=== PATIENT | male | born 1960 | race African-American/Black ===

== ENCOUNTER 2022-05-29 15:43 | Inpatient (IN) | payer OTHER ==
[2022-05-29 16:31] LABS: Absolute Lymphocytes (CBC) 1.2 K/uL (0.7-4.9); Hematocrit 35.8 % (39.6-49.0); Lymphocytes % 19.4 % (15.3-44.8); MCV 90.7 fL (80-100); MPV 8.5 fL (7.6-11.3); RBC Red Blood Cell Count 3.94 M/uL (4.33-5.43)
[2022-05-29] MEDS ORDERED: ASPIRIN 81 MG CHEWABLE TABLET ONE (16:31)
[2022-05-29 16:44] LABS: Potassium 5.4 mmol/L (3.5-5.1); Troponin High Sensitivity 25.6 pg/mL (<58.9)
--- NOTE | 2022-05-29 16:52 | RAD REPORT ---
EXAM DESCRIPTION: Rickey Single View05/29/2022 4:28 pm CLINICAL HISTORY: Chest pain COMPARISON: 2011 FINDINGS: The lungs appear clear of acute infiltrate. The heart is normal size IMPRESSION: No acute abnormalities displayed
--- NOTE | 2022-05-29 17:12 | EDPHYS ---
Physician Documentation [facility] Name: Zeferino Spain Age: 61 yrs Sex: Male : 1960 Arrival Date: 05/29/2022 Time: 15:45 Bed 24 Private MD: ED Physician Hola Lui HPI: 05/29 16:33 This 61 yrs old Black Male presents to ER via Ambulatory with complaints of Shortness ms3 Of Breath - on exertion. 16:34 The patient or guardian reports chest pain that is located primarily in the substernal ms3 area. Onset: 1 week(s) ago. The pain does not radiate. Associated signs and symptoms: Pertinent positives: Pertinent negatives: abdominal pain, diaphoresis, headache, vomiting. The chest pain is described as "discomfort". Duration: The patient or guardian reports a single episode. Modifying factors: The symptoms are alleviated by rest, the symptoms are aggravated by exertion. Severity of pain: At its worst the pain was incapacitating in the emergency department the pain has resolved. Historical: - Allergies: 16:06 unknow med; jl7 - PMHx: 16:06 Diabetes mellitus; Hypertensive disorder; Hypercholesterolemia; Congestive heart jl7 failure; - Immunization history:: Client reports receiving the 2nd dose of the Covid vaccine. - Social history:: Smoking status: Patient denies any tobacco usage or history of. ROS: 16:34 Constitutional: Negative for fever, and chills. Neck: Negative for injury, pain, and ms3 swelling. 16:34 Respiratory: Negative for shortness of breath, cough, wheezing, and pleuritic chest pain, Abdomen/GI: Negative for abdominal pain, nausea, vomiting, diarrhea, and constipation, MS/Extremity: Negative for injury and deformity, Skin: Negative for injury, rash, and discoloration, Neuro: Negative for headache, weakness, numbness, tingling. 16:34 Cardiovascular: Positive for chest pain. 16:34 All other systems are negative. Exam: 16:09 ECG was reviewed by the Attending Physician. ms3 16:34 Constitutional: This is a well developed, well nourished patient who is awake, alert, ms3 and in no acute distress. Head/Face: Normocephalic, atraumatic. Neck: Trachea midline, no cervical lymphadenopathy. Supple, full range of motion without nuchal rigidity, or vertebral point tenderness. No Meningismus. Chest/axilla: Normal chest wall appearance and motion. Nontender with no deformity. Cardiovascular: Regular rate and rhythm with a normal S1 and S2. No gallops, murmurs, or rubs. Normal PMI, no JVD. No pulse deficits. Respiratory: Lungs have equal breath sounds bilaterally, clear to auscultation and percussion. No rales, rhonchi or wheezes noted. No increased work of breathing, no retractions or nasal flaring. Abdomen/GI: Soft, non-tender, with normal bowel sounds. No distension or tympany. No guarding or rebound. No evidence of tenderness throughout. Skin: Warm, dry with normal turgor. Normal color with no rashes, no lesions, and no evidence of cellulitis. MS/ Extremity: Pulses equal, no cyanosis. Neurovascular intact. Full, normal range of motion. Neuro: Awake and alert, GCS 15, oriented to person, place, time, and situation. Cranial nerves II-XII grossly intact. Motor strength 5/5 in all extremities. Sensory grossly intact. Cerebellar exam normal. Normal gait. Psych: Awake, alert, with orientation to person, place and time. Behavior, mood, and affect are within normal limits. Vital Signs: 16:05 BP 152 / 74; Pulse 73; Resp 20; Temp 97.7; Pulse Ox 98% ; Weight 111.13 kg; Height 5 7 ft. 10 in. (177.80 cm); Pain 0/10; 16:21 BP 126 / 89; Pulse 73; Resp 18; Pulse Ox 98% on R/A; bh1 17:46 BP 133 / 78; Pulse 75; Resp 18; Pulse Ox 97% on R/A; bh1 20:02 BP 113 / 61; Pulse 69; Resp 18; Pulse Ox 99% on R/A; bh1 16:05 Body Mass Index 35.15 (111.13 kg, 177.80 cm) [facility] MDM: 16:03 Patient medically screened. ms3 16:35 Differential diagnosis: abnormal EKG, acute myocardial infarction, stable angina, ms3 unstable angina. 17:13 HEART Score: History: Moderately Suspicious (1), ECG: Normal (0), Age: > 45 and < 65 ms3 years (1), Risk Factors: > or = 3 Risk factors for atherosclerotic disease (2), [Hypercholesterolemia] [Hypertension] [DM] Troponin: < or = 1 x Normal Limit (0), Total Score = 4. Data reviewed: vital signs, nurses notes, lab test result(s), EKG, radiologic studies, and as a result, I will admit patient. Counseling: I had a detailed discussion with the patient and/or guardian regarding: the historical points, exam findings, and any diagnostic results supporting the discharge/admit diagnosis, lab results, radiology results, the need for further work-up and treatment in the hospital. ED course: Discussed plan for observation with patient and he agrees with plan. patient remained in stable condition in the ED.. 05/29 16:04 Order name: Basic Metabolic Panel; Complete Time: 17:05 ms3 05/29 16:04 Order name: CBC with Diff; Complete Time: 17:05 ms3 05/29 16:04 Order name: NT PRO-BNP; Complete Time: 17:05 ms3 05/29 16:04 Order name: Troponin HS; Complete Time: 17:05 ms3 05/29 16:04 Order name: XRAY Chest (1 view); Complete Time: 17:05 ms3 05/29 16:33 Order name: COVID-19 SARS RT PCR (Document "Date of Onset" if Symptomatic) jl7 05/29 16:04 Order name: EKG; Complete Time: 16:04 ms3 05/29 16:04 Order name: Cardiac monitoring; Complete Time: 16:21 ms3 05/29 16:04 Order name: EKG - Nurse/Tech; Complete Time: 16:21 ms3 05/29 16:04 Order name: IV Saline Lock; Complete Time: 16:21 ms3 05/29 16:04 Order name: Labs collected and sent; Complete Time: 16:21 ms3 05/29 16:04 Order name: O2 Per Protocol; Complete Time: 16:21 ms3 05/29 21:37 Order name: EDMT 05/29 16:04 Order name: O2 Sat Monitoring; Complete Time: 16:21 ms3 EC:09 Rate is 74 beats/min. Rhythm is regular. Left axis deviation noted. OK interval is ms3 normal. QRS interval is normal. Clinical impression: NSR w/ Non-specific ST/T Changes. Interpreted by me. Reviewed by me. Administered Medications: 16:25 Drug: Aspirin Chewable Tablet 324 mg Route: PO; [facility] 16:25 Follow up: Response: No adverse reaction [facility] Disposition Summary: 05/29/22 17:12 Hospitalization Ordered Location: Telemetry/MedSurg (observation) ms3 Condition: Stable ms3 Problem: new ms3 Symptoms: are unchanged ms3 Bed/Room Type: Standard ms3 Hospitalization Status: Inpatient Admission(05/29/22 17:51) [facility] Provider: David Lux(05/29/22 17:51) [facility] Room Assignment: [facility](05/29/22 21:02) Diagnosis - Chest pain, unspecified ms3 Forms: - Medication Reconciliation Form ms3 - SBAR form ms3 Signatures: Dispatcher [employer] EDMS Robert Stratton, FREDA-C PRESIDENT OF [employer] [place]-Cla1 Syl Sutherland RN RN Milton Albert RN RN jl7 Hola Lui DO DO ms3 Jade Osorio RN RN [facility] Corrections: (The following items were deleted from the chart) 16:07 16:06 PMHx: None; mathew carmona 17:51 17:12 Observation ms3 la1 17:51 17:12 Tomas Tejada ms3 wi1 21:02 17:12 ms3 cg
--- NOTE | 2022-05-29 17:12 | ER ---
Nurse's Notes [facility] Name: Zeferino Spain Age: 61 yrs Sex: Male : 1960 Arrival Date: 05/29/2022 Time: 15:45 Bed 24 Private MD: Diagnosis: Chest pain, unspecified Presentation: 05/29 16:05 Chief complaint: Patient states: Chest discomfort with exertion x 1 week. Coronavirus jl7 screen: At this time, the client does not indicate any symptoms associated with coronavirus-19. Ebola Screen: No symptoms or risks identified at this time. Initial Sepsis Screen: Does the patient meet any 2 criteria? No. Patient's initial sepsis screen is negative. Does the patient have a suspected source of infection? No. Patient's initial sepsis screen is negative. Risk Assessment: Do you want to hurt yourself or someone else? Patient reports no desire to harm self or others. Onset of symptoms was May 22, 2022. 16:05 Method Of Arrival: Ambulatory jl7 16:05 Acuity: ANISHA 2 jl7 Triage Assessment: 16:06 General: Appears in no apparent distress. uncomfortable, Behavior is calm, cooperative, jl7 appropriate for age. Pain: Complains of pain in chest Pain currently is 0 out of 10 on a pain scale. at worst was 10 out of 10 on a pain scale. Respiratory: Reports shortness of breath on exertion Onset: The symptoms/episode began/occurred gradually, the patient reports symptoms have resolved. Historical: - Allergies: 16:06 unknow med; jl7 - PMHx: 16:06 Diabetes mellitus; Hypertensive disorder; Hypercholesterolemia; Congestive heart jl7 failure; - Immunization history:: Client reports receiving the 2nd dose of the Covid vaccine. - Social history:: Smoking status: Patient denies any tobacco usage or history of. Screenin:21 Abuse screen: Denies threats or abuse. Nutritional screening: No deficits noted. bh1 Tuberculosis screening: No symptoms or risk factors identified. Fall Risk None identified. Assessment: 16:21 Reassessment: No changes from previously documented assessment. General: Appears in no bh1 apparent distress. Cardiovascular: No deficits noted. Rhythm is regular. Respiratory: Airway is patent Respiratory effort is even, unlabored, Breath sounds are clear bilaterally. Vital Signs: 16:05 BP 152 / 74; Pulse 73; Resp 20; Temp 97.7; Pulse Ox 98% ; Weight 111.13 kg; Height 5 7 ft. 10 in. (177.80 cm); Pain 0/10; 16:21 BP 126 / 89; Pulse 73; Resp 18; Pulse Ox 98% on R/A; bh1 17:46 BP 133 / 78; Pulse 75; Resp 18; Pulse Ox 97% on R/A; bh1 20:02 BP 113 / 61; Pulse 69; Resp 18; Pulse Ox 99% on R/A; bh1 16:05 Body Mass Index 35.15 (111.13 kg, 177.80 cm) 7 ED Course: 15:45 Patient arrived in ED. as 15:46 Hola Lui DO is Attending Physician. ms3 16:02 Jade Osorio, CASS is Primary Nurse. 1 16:06 Triage completed. 7 16:06 Arm band placed on right wrist. jl7 16:21 No apparent distress. Awaiting lab results, Awaiting radiology results. 1 16:21 Patient has correct armband on for positive identification. Bed in low position. Call [facility] light in reach. Side rails up X 1. phototypesetting equipment monitor on. Pulse ox on. NIBP on. 16:21 Basic Metabolic Panel Sent. [facility] 16:21 CBC with Diff Sent. 1 16:21 NT PRO-BNP Sent. 1 16:21 Troponin HS Sent. 1 16:21 No provider procedures requiring assistance completed. Inserted saline lock: 20 gauge bh1 in left forearm, using aseptic technique. Blood collected. 16:30 XRAY Chest (1 view) In Process Unspecified. EDMS 17:11 Tomas Tejada MD is Hospitalizing Provider. ms3 17:46 No apparent distress. Resting quietly. Awaiting bed assignment, Awaiting lab results, [facility] Awaiting radiology results. Patient requests food. 17:46 COVID-19 SARS RT PCR (Document "Date of Onset" if Symptomatic) Sent. [facility] 17:51 David Lux MD is Hospitalizing Provider. la1 20:04 No apparent distress. Resting quietly. Awaiting bed assignment. [facility] 21:16 Patient admitted, IV remains in place. 1 Administered Medications: 16:25 Drug: Aspirin Chewable Tablet 324 mg Route: PO; [facility] 16:25 Follow up: Response: No adverse reaction [facility] Medication: 16:21 VIS not applicable for this client. [facility] Outcome: 17:12 Decision to Hospitalize by Provider. ms3 21:15 Admitted to Tele accompanied by tech, room 427, Report called to MADELAINE ODELL [facility] 21:15 Condition: good 21:15 Discharge instructions given to millinery salesperson. 22:24 Patient left the ED. [facility] Signatures: Dispatcher [employer] EDCata Palmer Lee, SALES PROMOTION COORDINATOR-C SALES PROMOTION COORDINATOR-Cla1 Milton Albert RN RN jl7 Hola Lui DO DO ms3 Jade Osorio RN RN [facility] Corrections: (The following items were deleted from the chart) 16:07 16:06 PMHx: None; mathew carmona 21:41 21:15 Admitted to Tele accompanied by tech, room 427, [place] [id number]
--- NOTE | 2022-05-29 18:47 | P.HP ---
Certification for Inpatient Patient admitted to: Inpatient With expected LOS: >2 Midnights Patient will require the following post-hospital care: None Practitioner: I am a practitioner with admitting privileges, knowledge of patient current condition, hospital course, and medical plan of care. Services: Services provided to patient in accordance with Admission requirements found in Title 42 Section 412.3 of the Code of Federal Regulations <Robert Stratton - Last Filed: 05/29/22 18:41> Patient History Date of Service: 05/29/22 Reason for admission: Chest pain History of Present Illness: 61-year-old male with history of insulin-dependent diabetes, hypertension, hyperlipidemia, CHFunknown EF, CAD presents to the emergency department for chest pain. Patient reports that he was having to move and heavy object which is atypical for him in the process of moving heavy objects he developed an uncomfortable sensation in his chest with severe fatigue causing him to need to stop this activity, he rested and it was relieved, he attempted again to move a heavy object and once again experienced an abnormal sensation in his chest which she cannot further describe along with fatigue. He discontinued his efforts and presented to the emergency department for evaluation his labs were remarkable for creatinine of 4.03 GFR of 16 BUN of 46 and potassium of 5.4 his initial high-sensitivity troponin was within normal limits at 25.6, his BNP was 83 EKG was without STEMI criteria chest x-ray showed no acute abnormalities. His last creatinine here was from 2010 and was normal at 1.27 although patient reports he does follow with nephrology on outpatient basis and has been told he has chronic kidney disease, he cannot tell me what his baseline renal function is although he reports that in the past his director decision support has told him of his kidney function got much worse he could require dialysis. I called patient's nephrology group, they will consult. ED provider wishes to admit for ACS rule out. - Past Medical/Surgical History -: Diabetes metas type IIinsulin-dependent -: Hypertension -: BPH -: Hyperlipidemia -: CKD -: CHFunknown EF -: Right foot surgery -: Heart cath around 2016 no stentssome disease Psychosocial/ Personal History: Patient lives at home, is retired - Family History Mother -: Heart disease Notes: at 71 from [place] Brother -: Heart disease Notes: at 58 from [place] - Social History Smoking Status: Never smoker Alcohol use: No CD- Drugs: No Caffeine use: Yes Place of Residence: Home <Robert Stratton - Last Filed: 05/29/22 18:41> Date of Service: 05/30/22 <David Lux - Last Filed: 05/30/22 16:27> Review of Systems 10-point ROS is otherwise unremarkable Respiratory: SOB with Excertion Cardiovascular: Chest Pain <Robert Stratton - Last Filed: 05/29/22 18:41> Physical Examination - Physical Exam General: Alert, In no apparent distress, Oriented x3, Obese HEENT: Atraumatic, PERRLA, Mucous membr. moist/pink, EOMI, Sclerae nonicteric Neck: Supple, 2+ carotid pulse no bruit, No LAD, Without JVD or thyroid abnormality Respiratory: Clear to auscultation bilaterally, Normal air movement Cardiovascular: Regular rate/rhythm, Normal S1 S2 Gastrointestinal: Normal bowel sounds, No tenderness Musculoskeletal: No tenderness Integumentary: No rashes Neurological: Normal speech, Normal strength at 5/5 x4 extr, Normal tone, Normal affect - Studies Laboratory Data (last 24 hrs) 05/29/22 16:18: WBC 6.2, Hgb 12.0 L, Hct 35.8 L, Plt Count 236 05/29/22 16:18: Sodium 136, Potassium 5.4 H, BUN 46 H, Creatinine 4.03 H, Glucose 132 H <Robert Stratton - Last Filed: 05/29/22 18:41> - Studies Laboratory Data (last 24 hrs) 05/29/22 16:18: WBC 6.2, Hgb 12.0 L, Hct 35.8 L, Plt Count 236 05/29/22 16:18: Sodium 136, Potassium 5.4 H, BUN 46 H, Creatinine 4.03 H, Glucose 132 H <David Lux - Last Filed: 05/30/22 16:27> Assessment and Plan - Plan Assessment: Chest pain rule out ACS Acute renal failure versus CKD 4 Chronic CHFunknown EF Hypertension Hyperlipidemia BPH Plan: Chest pain rule out ACS: Patient reports last heart catheterization was around 5 years ago did not require any stenting but was told he did have some coronary artery disease, continue patient's aspirin, statin we will add low-dose beta- vonda. Story sounds like new onset angina, symptoms were quickly relieved after discontinuation of strenuous activity. Monitor on telemetry, trend troponins, cardiology consult in place. Continue other home medications. Acute renal failure versus CKD 4: Unknown baseline renal function, patient follows with Dr. Viera, has consulted nephrology for additional input, patient may be in acute renal failure renal ultrasound has been ordered and nephrology consult is in place. Patient on renal/ADA diet. Chronic CHFunknown EF: No echo available for review patient reports that he had echocardiogram done in the last year or [address] technician Dr[address] Horan. He is not sure what his ejection fraction is he does not appear to be volume overloaded at this time. We will continue patient's home medications and monitor on telemetry. Appreciate further input from cardiology. Hypertension: Home medications have been continued with hold parameters with a ddition of low-dose beta-vonda Hyperlipidemia: Continue statin BPH: Flomax continued. DVT PPX: Heparin Code status: Full Discharge Plan: Home Plan to discharge in: 48 Hours - Advance Directives Does patient have a Living Will: No Does patient have a Durable POA for Healthcare: No - Code Status/Comfort Care Code Status Assessed: Yes (Full code) Critical Care: No Time Spent Managing Pts Care (In Minutes): 70 <Robert Stratton - Last Filed: 05/29/22 18:41> Physician Review Additional Text: I have personally seen and evaluated Mr. Zeferino Spain. I reviewed the notes and assessments performed by Robert Stratton NP. I independently performed my own history and physical examination. I agree with the assessment and plan as outlined in his note. I concur with his documentation of Mr. Spain. <David Lux - Last Filed: 05/30/22 16:27>
--- NOTE | 2022-05-29 20:30 | P.PN ---
Date of Service: 05/29/22 Brief Renal note (chart review only, full consult note to follow): Pt sent from the office earlier today due to reports of worsening CROUCH. Pt's renal function tests on admission reveal Stage III ARF (Cr > 4 mg/dl) on his underlying CKD IIIb/IV (Cr levels earlier in the year ranged between 2.5-2.9 mg/dl). Pt previously taken off agents such as ARB and SGLT2i. Pt has been on chronic diuretic therapy (loop and aldosterone antagonist) for unspecified CHF and BNP here < 100 despite renal impairment and CXR clear so can not exclude a pre-renal component. Pt's symptoms appear to be possibly COVID-19 infection related as he has tested positive. Pt also has some hx of bladder outlet obstruction so will check random bladder scan. Will dose Kayexalate 15 gm x 1 for mild hyperkalemia. Will suspend diuretics. Will hydrate gently. Thank you for the referral, Theodore Good MD, [facility]
--- NOTE | 2022-05-29 21:37 | RAD REPORT ---
EXAM DESCRIPTION: US - Urinary Bladder - 05/29/2022 9:17 pm CLINICAL HISTORY: Bladder outlet obstruction FINDINGS: Bladder volume 416 cc. Prostate gland is moderately to markedly enlarged. No ascites IMPRESSION: Moderate to marked enlargement of the prostate gland. Bladder is distended
[2022-05-29] MEDS: HYDRALAZINE HCL 25 MG TABLET PO SCH (22:04)
[2022-05-29] MEDS: ATORVASTATIN 10 MG TAB PO SCH (22:04)
[2022-05-29] MEDS: INSULIN -REGULAR HUMAN 50 UNIT/0.5 ML ML SQ SCH (22:04)
[2022-05-29] MEDS: LABETALOL HCL 100 MG TAB PO SCH (22:04)
[2022-05-29] MEDS ORDERED: SOD POLYSTYREN SUL 15 GM/60 ML UCUP PO ONE (22:04)
[2022-05-29] MEDS ORDERED: ONDANSETRON 4 MG/2 ML VIAL IV PRN (22:04)
[2022-05-29] MEDS: TAMSULOSIN 0.4 MG SR CAP PO SCH (22:04)
[2022-05-29] MEDS: HEPARIN 5000 UNIT/ML 1 ML VIAL SQ SCH (23:08)
[2022-05-29 23:46] VITALS: O2SAT 99
[2022-05-30 05:11] LABS: Absolute Lymphocytes (CBC) 1.7 K/uL (0.7-4.9); Hematocrit 34.1 % (39.6-49.0); Lymphocytes % 28.2 % (15.3-44.8); MCV 90.5 fL (80-100); MPV 9.3 fL (7.6-11.3); RBC Red Blood Cell Count 3.77 M/uL (4.33-5.43)
[2022-05-30 05:24] LABS: Albumin 3.7 g/dL (3.4-5.0); Bilirubin Total 0.5 mg/dL (0.2-1.0); Potassium 4.4 mmol/L (3.5-5.1); Protein, Total 7.5 g/dL (6.4-8.2)
[2022-05-30] MEDS ORDERED: carvediloL 3.125 MG TAB PO SCH (06:00)
[2022-05-30] MEDS: INSULIN -REGULAR HUMAN 50 UNIT/0.5 ML ML SQ SCH ×4 (07:30→22:22)
[2022-05-30] MEDS ORDERED: BUMETANIDE 1 MG TABLET PO SCH (09:00)
[2022-05-30] MEDS ORDERED: AMLODIPINE 5 MG TAB PO SCH ×2 (09:00→16:41)
[2022-05-30 09:17] LABS: Urine Appearance Clear (Clear); Urine Bilirubin Negative (Negative); Urine Blood Negative (Negative); Urine Color Yellow (Yellow); Urine Glucose Negative (Negative); Urine Protein Negative (Negative); Urine Urobilinogen 0.2 mg/dL (0.2-1.0); Urine pH 5.5 (5.0-7.0)
[2022-05-30 09:25] LABS: Urine Bacteria <20 /HPF (NONE SEEN); Urine RBC <5 /HPF (NONE SEEN)
[2022-05-30] MEDS: INSULIN GLARGINE 100 UNIT/ML SQ SCH (10:04)
[2022-05-30] MEDS: HYDRALAZINE HCL 25 MG TABLET PO SCH ×3 (10:06→21:19)
[2022-05-30] MEDS: LABETALOL HCL 100 MG TAB PO SCH ×2 (10:06→21:19)
[2022-05-30] MEDS: ASPIRIN EC 81 MG TAB PO SCH (10:06)
[2022-05-30] MEDS: dexAMETHasone 4 MG TAB PO SCH (10:07)
[2022-05-30] MEDS: HEPARIN 5000 UNIT/ML 1 ML VIAL SQ SCH ×2 (10:07→22:11)
[2022-05-30 10:37] LABS: UR MICROALBUMIN < 0.5 mg/dL (< 1.9)
--- NOTE | 2022-05-30 12:48 | RAD REPORT ---
EXAM DESCRIPTION: US - Renal Ultrasound-Complete - 05/29/2022 11:36 pm CLINICAL HISTORY: 61 years Male, arf TECHNIQUE: Real-time transabdominal imaging of the kidneys was performed. COMPARISON: None were provided at time of this interpretation. FINDINGS: KIDNEYS: The right and left renal lengths are 11.1 cm and 9.5 cm, respectively. There is m oderate increased bilateral renal parenchymal echogenicity. There is no hydronephrosis bilaterally. Right midpole 0.8 cm simple renal cyst, no further workup is warranted No shadowing calculi bilateral ly. No focal solid mass. URINARY BLADDER: Prostatomegaly impressing upon the base of the urinary bladder. Mild urinary bladder wall thickening versus artifactual due to nondistended status. IMPRESSION: 1. Moderate increased bilateral renal parenchymal echotexture suggestive of renal medi phill disease. 2. Prostatomegaly impressing upon the base of the urinary bladder. 3. Mild urinary bladder wall thickening versus artifactual due to nondistended status. Electronically signed by: Willam Madsen MD 05/30/2022 12:25 AM CDT Due to temporary technical issues with the PACS/Fluency reporting system, reports are being signed by the in house radiologists without review as a courtesy to insure prompt reporting. The interpreting radiologist is fully responsible for the content of the report.
--- NOTE | 2022-05-30 15:59 | P.PN ---
Subjective Date of Service: 05/30/22 Chief Complaint: Chest pain No acute events since admission. This morning, he is sitting upright comfortably in bed. He is breathing comfortably on room air. He denies any particular symptoms. He endorses that he has kidney disease, but he does not know the severity of it. Per review of the Nephrology progress note, it appears that his baseline creatinine is 2.52.9. Review of Systems General: Unremarkable Eyes: Unremarkable ENT: Unremarkable Respiratory: SOB with Excertion Cardiovascular: Chest Pain (with exertion) Gastrointestinal: Unremarkable Genitourinary: Unremarkable Musculoskeletal: Unremarkable Integumentary: Unremarkable Neurological: Unremarkable Physical Examination - Vital Signs Temperature: 97.6 F Blood Pressure: 108/71 Pulse: 71 Respirations: 18 Pulse Ox (%): 98 - Physical Exam General: Alert, In no apparent distress, Oriented x3 HEENT: Atraumatic, Mucous membr. moist/pink, EOMI Neck: Supple, Without JVD or thyroid abnormality Respiratory: Clear to auscultation bilaterally, Normal air movement Cardiovascular: No edema, Regular rate/rhythm, Normal S1 S2, No gallops, No rubs, No murmurs Gastrointestinal: Normal bowel sounds, Soft and benign, No tenderness, No rebound, No guarding Musculoskeletal: No clubbing, No swelling Integumentary: No rashes Neurological: Normal speech, Normal affect - Studies Laboratory Data (last 24 hrs) 05/29/22 16:18: WBC 6.2, Hgb 12.0 L, Hct 35.8 L, Plt Count 236 05/29/22 16:18: Sodium 136, Potassium 5.4 H, BUN 46 H, Creatinine 4.03 H, Glucose 132 H Medications List Reviewed: Yes Assessment And Plan - Plan # Exertional Chest Pain - concern for Stable Angina Based on history and physical examination, cannot exclude ischemia as a possible etiology of his chest pain. Other differential diagnoses include, but are not limited to, pulmonary embolism, pericarditis, myocarditis, gastroesophageal reflux disease, gastritis/esophagitis, esophageal spasms, pleuritic chest pain, and musculoskeletal chest pain (i.e. costochondritis). - Evaluation thus far: - EKG: unavailable for my review - reportedly without STEMI criteria, trend - Serial troponin: 25.6 -> 25.6 - Ordered transthoracic echocardiogram - Chest x-ray = "no acute abnormalities displayed." - Ordered d-dimer - Management plan: - Consult Cardiology and Dr. 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 Good notified - recommendations appreciated - Creatinine = 4.03 -> 3.79 (baseline creatinine 2.5-2.9 per Nephrology) - Urinalysis = within normal limits - US bladder = "moderate to marked enlargement of the prostate gland. Bladder is distended." - Renal ultrasound = "1. Moderate increased bilateral renal parenchymal echotexture suggestive of renal medical disease. 2. Prostatomegaly impressing upon the base of the urinary bladder. 3. Mild urinary bladder wall thickening versus artifactual due to nondistended status." - Requested Sims catheter be placed - Monitor creatinine and urine output - Renally dose medications # Hyperglycemia in Type II Diabetes Mellitus - Continue home insulin regimen - Correction scale insulin ordered #COVID-19 positive On exam, he appears clinically well and is not in any respiratory distress. His chest x-ray is also reassuring. He states that he would like some medication directed to COVID-19 infection. He specifically asks for remdesivir; however, I advised against this given his renal function. I offered that if he wants a medication for his COVID-19, we can treat him with a 5-day course of dexamethasone, but this will cause issues with his glycemic control. He states that he would like to proceed with dexamethasone treatment so this has been ordered. - Monitor respiratory status - Dexamethasone 6 mg PO daily x 5 days - Incentive spirometry - Isolation precautions # Chronic Compensated Congestive Heart Failure (Unknown Ejection Fraction) # Hypertension # Hyperlipidemia No evidence of acute CHF exacerbation. - Consult Cardiology - recommendations appreciated - Ordered transthoracic echocardiogram - Continue home amlodipine, hydrlazine, labetalol - Daily weights - Strict I/O - Cardiac diet, 2 L fluid restriction, 2 g Na restriction Benign Prostatic Hyperplasia - Continue home tamsulosin David Lux MD
--- NOTE | 2022-05-30 16:36 | P.CNS ---
Date of Consult: 05/30/22 Reason for Consult: Renal insufficiency Primary Care Provider: Robert Chief Complaint: Chest pain History of Present Illness: Pt is a 61-year-old male AAM with history of uncontrolled insulin-dependent diabetes, hypertension, hyperlipidemia, CHF who was referred to the ER by the ELECTRIC MOTOR TESTER working with Dr. Viera his Short Filler Bunch Machine Operator based on pt reports of increased dyspnea and fatigue with exertion. He denies current CP at rest. He has not been out of bed today. He denies dyspnea at rest and is not on O2. He is afebrile, he did test positive for COVID-19. His renal function tests on admission were worse c/w his baseline function. He has been urinating without issues he reports. Renal u/s done which was reviewed. Allergies No Known Allergies Allergy (Unverified 05/29/22 22:01) Home Medications: Amlodipine [Norvasc*] 5 mg PO DAILY 05/29/22 Aspirin [Aspirin EC 81 MG] 81 mg PO DAILY 05/29/22 Bumetanide [Bumex*] 1 mg PO DAILY 05/29/22 Doxazosin Mesylate [Cardura] 2 mg PO BEDTIME 05/29/22 Famotidine 20 mg PO BID 05/29/22 Hydralazine [Apresoline*] 25 mg PO TID 05/29/22 Labetalol HCl [Trandate] 200 mg PO BID 05/29/22 Simvastatin 20 mg PO BEDTIME 05/29/22 Spironolactone [Aldactone] 50 mg PO BID 05/29/22 Tadalafil [Cialis] 5 mg PO DAILY 05/29/22 Tamsulosin [Flomax*] 1 mg PO DAILY 05/29/22 - Past Medical/Surgical History Diabetic: Yes -: Diabetes metas type IIinsulin-dependent -: Hypertension -: BPH -: Hyperlipidemia -: CKD -: CHFunknown EF -: Right foot surgery from infection -: Heart cath around 2016 no stentssome disease Psychosocial/ Personal History: Patient lives at home, is retired - Family History Mother Medical History: Heart disease Notes: at 71 from [place] Brother Medical History: Heart disease Notes: at 58 from [place] - Social History Alcohol use: No CD- Drugs: No Caffeine use: No Place of Residence: Home Review of Systems General: Weakness Eyes: Unremarkable ENT: Unremarkable Respiratory: SOB with Excertion Cardiovascular: Chest Pain Gastrointestinal: Unremarkable Genitourinary: Other (Hx of BPH) Musculoskeletal: Unremarkable Integumentary: Unremarkable Neurological: Unremarkable Lymphatics: Unremarkable Physical Examination Temp Pulse Resp BP Pulse Ox 97.6 F 71 18 108/71 98 05/30/22 16:27 05/30/22 16:27 05/30/22 16:27 05/30/22 16:27 05/30/22 16:27 General: Alert, In no apparent distress, Oriented x3 HEENT: Atraumatic Neck: Supple Respiratory: Normal air movement Cardiovascular: No edema, Regular rate/rhythm Gastrointestinal: Soft and benign Integumentary: No rashes Neurological: Normal speech, Normal affect (Limited exam due to COVID-19 isolation precautions) Laboratory Data (last 24 hrs) 05/29/22 16:18: WBC 6.2, Hgb 12.0 L, Hct 35.8 L, Plt Count 236 05/29/22 16:18: Sodium 136, Potassium 5.4 H, BUN 46 H, Creatinine 4.03 H, Glucose 132 H Conclusions/Impression: 1. Stage III ARF per KENDRA definition 2. Underlying CKD Stage IIIb/IV 3. Azotemia 4. Acute COVID-19 infection 5. Dyspnea unspecified 6. Chronic systolic CHF 7. Type II DM with diabetic CKD 8. Hyperkalemia, resolved -Stage III ARF (Cr > 4 mg/dl) on his underlying CKD IIIb/IV (Cr levels earlier in the year ranged between 2.5-2.9 mg/dl). Pt previously taken off agents such as ARB and SGLT2i. Pt has been on chronic diuretic therapy (loop and aldosterone antagonist) for unspecified CHF and BNP here < 100 despite renal impairment and CXR clear so suspected a pre-renal component +/- functional DOROTA from other effects (relative hypotension, other). Held off on IVF administration but suspended diuretics temp, Cr level marginally lower today, cont to trend. UOP not documented by staff. -No uremic symptoms, trend azotemia which may worsen on steroids -Place holding parameters on BP meds, no proven advantage to lowering SBP < 120 mmHg in a diabetic and diabetic pts with CKD may be more susceptible to normotensive renal ischemia. -Some of pt's symptoms appear to be possibly COVID-19 infection related as he has tested positive. -Pt also has some hx of bladder outlet obstruction but renal u/s ruled out hydro or retention of urine, cont alpha vonda therapy. -Hyperkalemia resolved Thank you for the referral, Theodore Good MD, [facility]
--- NOTE | 2022-05-30 20:32 | CON ---
Date of Consultation: 05/30/2022 Reason For Consultation: Chest pain. History Of Present Illness: 61-year-old male with history of diabetes, hypertension, dyslipidemia, c ongestive heart failure, coronary artery disease, presented with chest discomfort and shortness of br eath. He said he was working and could not push himself anymore and he did not have hu pain or fr ank difficulty breathing, but he just felt so exhausted and could not move any further. Denies nidhi morataya any chest pain at the present time. No shortness of breath. Resting comfortably. He was tested p ositive for COVID. Past Medical History: As outlined above in the HPI. Medications: Refer reconciliation sheet for detailed list. Allergies: NO KNOWN DRUG ALLERGIES. Family History: No premature coronary artery disease or cancer. Social History: He does not smoke or drink. Does not use any drugs. Review of Systems: All systems reviewed and they were negative except as mentioned in HPI. Physical Examination: Vital Signs: Temperature is 97.6, pulse 71, breathing at 18, blood pressure is 108/71, saturating 98 % on room air. Pleasant, middle-aged male, in no apparent distress. Head And Neck: Pupils are equal, reactive to light. Intact eye movements. No JVD. No cervical lymphadenopathy. Neck: Supple. Thyroid is not enlarged. Lungs: Clear to auscultation bilaterally. No rhonchi, rales, or crackles. No accessory muscle use. Heart: Regular rate and rhythm. No extra sounds. Abdomen: Soft, nontender. Bowel sounds positive. No organomegaly. No masses or hernia. No rigidi ty or rebound. Extremities: No edema, clubbing, cyanosis. Intact pulses. Skin: No rashes. Neurologic: Alert, awake, oriented x3. No acute focal deficits appreciated. Investigations: Creatinine 3.79, down from 4.03. Hemoglobin 11.8, white blood cell count 6.1, and h is troponin x2 were negative. Assessment And Recommendations: 1.Chest pain. The atypical cardiac enzymes are negative from Cardiology standpoint. We will plan f or outpatient stress test and an echocardiogram. No inpatient workup is needed. 2.Chronic kidney disease, being managed by Nephrology. 3.COVID positive. The patient is asymptomatic. 4.Congestive heart failure. He appears to be euvolemic at the present time. No adjustment of medic ations. If the patient is otherwise stable, he can be released and we will follow up with him as an outpatient with exercise stress test and an echo. /ERICA Voice ID: [id number] Report ID: [id number]
[2022-05-30] MEDS: ATORVASTATIN 10 MG TAB PO SCH (21:19)
[2022-05-30] MEDS: TAMSULOSIN 0.4 MG SR CAP PO SCH (21:19)
[2022-05-31 04:40] LABS: Absolute Lymphocytes (CBC) 0.7 K/uL (0.7-4.9); Hematocrit 33.6 % (39.6-49.0); Lymphocytes % 9.5 % (15.3-44.8); MCV 91.5 fL (80-100); MPV 9.3 fL (7.6-11.3); RBC Red Blood Cell Count 3.67 M/uL (4.33-5.43)
[2022-05-31 05:00] LABS: Albumin 3.5 g/dL (3.4-5.0); Bilirubin Total 0.4 mg/dL (0.2-1.0); Potassium 5.1 mmol/L (3.5-5.1); Protein, Total 7.4 g/dL (6.4-8.2)
[2022-05-31 05:17] VITALS: BMI 35.3
[2022-05-31] MEDS: dexAMETHasone 4 MG TAB PO SCH (09:00)
[2022-05-31] MEDS: HEPARIN 5000 UNIT/ML 1 ML VIAL SQ SCH (09:00)
[2022-05-31] MEDS: INSULIN -REGULAR HUMAN 50 UNIT/0.5 ML ML SQ SCH ×3 (10:01→16:28)
[2022-05-31] MEDS: INSULIN GLARGINE 100 UNIT/ML SQ SCH (10:02)
[2022-05-31] MEDS: ASPIRIN EC 81 MG TAB PO SCH (10:04)
[2022-05-31] MEDS: HYDRALAZINE HCL 25 MG TABLET PO SCH ×2 (10:05→13:14)
[2022-05-31] MEDS: LABETALOL HCL 100 MG TAB PO SCH (10:07)
--- NOTE | 2022-05-31 15:54 | P.DS ---
Admission Date: 05/29/22 Discharge Date: 05/31/22 Primary Care Provider: Robert Disposition: ROUTINE DISCHARGE Discharge Condition: GOOD Reason for Admission: Chest pain Consultations: 1. Nephrology 2. Cardiology Hospital Course: DIAGNOSES: # Exertional Chest Pain - concern for Stable Angina # KDIGO Stage III Acute Kidney Injury on Chronic Kidney Disease Stage IIIb/IV # Hyperglycemia in Type II Diabetes Mellitus #COVID-19 positive # Chronic Compensated Congestive Heart Failure (Unknown Ejection Fraction) # Hypertension # Hyperlipidemia # Benign Prostatic Hyperplasia HOSPITAL COURSE: Mr. Zeferino Spain is a pleasant 61 year old male with a past medical history significant for chronic kidney disease stage IIIb/IV, type II diabetes mellitus, chronic congestive heart failure (unknown ejection fraction), hypertension, hyperlipidemia, and benign prostatic hyperplasia who was admitted to the [facility] on 05/29/2022 for chest pain. Upon further evaluation, his vital signs were stable. His EKG was without STEMI criteria. His troponin trend was 25.6 and 25.6, respectively. Chest x-ray revealed, "no acute abnormalities displayed." His d-dimer was 434. Cardiology was consulted and Dr. Hylton evaluated him. He deemed him stable for discharge from a cardiology standpoint and recommended that he follow-up in clinic in 1-2 weeks for an outpatient stress test. In regards to his acute kidney injury, this corrected over his hospital course by holding his diuretics. Nephrology was consulted and he was evaluated by Dr. Good, who has cleared him for discharge with the following recommendations: (1) reduce home spironolactone dose to 25 mg daily, (2) reduce home bumetanide dose to 0.5 mg daily, and (3) schedule a follow-up appointment with Dr. Duarte in 7-10 days. Of note, he was incidentally noted to have a COVID-19. He did not display hypoxia or many respiratory symptoms in the hospital, but he was empirically started on dexamethasone due to exertional shortness of breath. However, with dexamethasone his glycemic control was quite poor. A risks/benefits discussion was held with him, and he decided to proceed without any more dexamethasone. I reviewed his case with our Infectious Diseases specialist, particularly regarding remdesivir and Paxlovid. Per ID, he is not a candidate for either given his significant renal disease. On 05/31/2022, he was seen on morning rounds and deemed medically stable for discharge. He was discharged with instructions to schedule follow-up appointments with his PCP in 3-5 days, his public opinion survey taker in 7-10 days, and with cardiology in 1-2 weeks. He was provided prescriptions for spironolactone and bumetanide. He was given the opportunity to ask questions and reported no further questions. Furthermore, all questions were answered to the best of my ability. Today, I personally spent 25 minutes with him, of which greater than 50% of the time was spent in patient education, counseling, and coordination of care as described above. PHYSICAL EXAMINATION: General: Alert, In no apparent distress, Oriented x3 HEENT: Atraumatic, Mucous membr. moist/pink, EOMI Neck: Supple, Without JVD or thyroid abnormality Respiratory: Clear to auscultation bilaterally, Normal air movement Cardiovascular: No edema, Regular rate/rhythm, Normal S1 S2, No gallops, No rubs, No murmurs Gastrointestinal: Normal bowel sounds, Soft and benign, No tenderness, No rebound, No guarding Musculoskeletal: No clubbing, No swelling Integumentary: No rashes Neurological: Normal speech, Normal affect Vital Signs/Physical Exam: Temp Pulse Resp BP Pulse Ox 97.5 F 67 16 152/74 H 99 05/31/22 12:00 05/31/22 12:00 05/31/22 12:00 05/31/22 12:00 05/31/22 12:00 Laboratory Data at Discharge: WBC 7.6 K/uL (4.3-10.9) D 05/31/22 04:02 Hgb 11.3 g/dL (13.6-17.9) L 05/31/22 04:02 Hct 33.6 % (39.6-49.0) L 05/31/22 04:02 Plt Count 239 K/uL (152-406) 05/31/22 04:02 Sodium 132 mmol/L (136-145) L 05/31/22 04:02 Potassium 5.1 mmol/L (3.5-5.1) 05/31/22 04:02 BUN 50 mg/dL (7-18) H 05/31/22 04:02 Creatinine 2.66 mg/dL (0.55-1.3) H D 05/31/22 04:02 Glucose 290 mg/dL (74-106) H 05/31/22 04:02 Total Bilirubin 0.4 mg/dL (0.2-1.0) 05/31/22 04:02 AST 29 U/L (15-37) 05/31/22 04:02 ALT 51 U/L (12-78) 05/31/22 04:02 Alkaline Phosphatase 57 U/L (45-117) 05/31/22 04:02 Home Medications: Amlodipine [Norvasc*] 5 mg PO DAILY 05/29/22 Aspirin [Aspirin EC 81 MG] 81 mg PO DAILY 05/29/22 Doxazosin Mesylate [Cardura] 2 mg PO BEDTIME 05/29/22 Famotidine 20 mg PO BID 05/29/22 Hydralazine [Apresoline*] 25 mg PO TID 05/29/22 Labetalol HCl [Trandate] 200 mg PO BID 05/29/22 Simvastatin 20 mg PO BEDTIME 05/29/22 Tadalafil [Cialis] 5 mg PO DAILY 05/29/22 Tamsulosin [Flomax*] 1 mg PO DAILY 05/29/22 Bumetanide [Bumex] 0.5 mg PO DAILY #30 tab 05/31/22 Spironolactone 25 mg PO DAILY #30 tablet 05/31/22 New Medications: Bumetanide [Bumex] 0.5 mg PO DAILY #30 tab Spironolactone 25 mg PO DAILY #30 tablet Physician Discharge Instructions: 1. Please schedule follow-up with your PCP in 3-5 days. 2. Please schedule follow-up with your Garment Patternmaker (Dr. Viera) in 7-10 days. 3. Please schedule follow-up with Cardiology (Dr. Hylton) in 1-2 weeks. Diet: Renal Activity: Ad garrett Followup: Catina Sandoval PA [Primary Care Provider] - Time spent managing pt's care (in minutes): 25
[2022-05-31 16:14] VITALS: BP 151/72; TEMP 97.8
--- NOTE | 2022-05-31 20:38 | PN ---
Date of Progress Note: 05/31/2022 Subjective: Seen by bedside. Doing clinically well. Has no symptoms. Review of Systems: No chest pain, shortness of breath, orthopnea, cough, nausea, vomiting, diarrhea, abdominal pain. No dysuria, polyuria, or urinary urgency. No skin rash. All other systems reviewed and they are negat zach. Physical Examination: Vital Signs: Reviewed. Head and Neck: Pupils are equal, reactive to light. Intact eye movements. No JVD. No cervical lym phadenopathy. Neck is supple. Thyroid is not enlarged. Lungs: Clear to auscultation bilaterally. No rhonchi, wheezing, or crackles. No accessory muscle u se. Heart: Regular rate and rhythm. No extra sounds. Abdomen: Soft, nontender. Bowel sounds positive. No organomegaly. No masses or hernia. No rigidi ty or rebound. Extremities: No edema, clubbing, or cyanosis. Intact pulses. Skin: No rash. Neurologic: Alert, awake, oriented x3. No acute focal deficits appreciated. Lymph Nodes: No cervical or axillary lymphadenopathy. Investigations: Labs were reviewed. Assessment And Plan: 1.Chest pain. Cardiac enzymes were negative. This patient can be released from our standpoint and plan for outpatient stress test and echocardiogram. 2.COVID positive, asymptomatic and stable. 3.Acute on chronic kidney disease. Creatinine is improving. 4.Congestive heart failure. He is euvolemic. Adjustment of medications recommended at this point. /ERICA Voice ID: [id number] Report ID: [id number]
[2022-06-01] MEDS ORDERED: BUMETANIDE 1 MG TABLET PO SCH (09:00)
--- NOTE | 2022-06-01 13:54 | EKG ---
Test Date: 2022-05-29 Test Time: 16:09:53 Shingle Packer: REUBEN MEASUREMENT RESULTS: Intervals: Rate: 74 VA: 164 QRSD: 76 QT: 372 QTc: 412 [place]: P: 53 VA: 164 QRS: -37 T: 100 INTERPRETIVE STATEMENTS: Normal sinus rhythm Left axis deviation Abnormal QRS-T angle, consider primary T wave abnormality Abnormal ECG Compared to ECG 03/22/2011 07:02:19 Possible ischemia no longer present T-wave abnormality still present Electronically Signed On 06-01-22 13:48:39 CDT by Jani Hylton
== END 2022-05-31 17:52 | disposition home or self-care (01) | DRG 302 ==
LOC: ER 15:43 → ERHOLD 20:21 → 4TH 21:47
PROVIDERS: ADMIT Internal Medicine; ATTEND Internal Medicine
DX: I25.119 Atherosclerotic heart disease of native coronary artery with unspecified angina pectoris (principal); U07.1 COVID-19; I13.0 Hypertensive heart and chronic kidney disease with heart failure and stage 1 through stage 4 chronic kidney disease, or unspecified chronic kidney disease; N18.4 Chronic kidney disease, stage 4 (severe); N17.9 Acute kidney failure, unspecified; E11.22 Type 2 diabetes mellitus with diabetic chronic kidney disease; E11.65 Type 2 diabetes mellitus with hyperglycemia; I50.9 Heart failure, unspecified; E78.5 Hyperlipidemia, unspecified; N40.0 Benign prostatic hyperplasia without lower urinary tract symptoms; E87.5 Hyperkalemia
CPT/HCPCS: 36415; 71045; 76770; 76857; 80048; 80053; 81003; 81015; 82043; 82570; 82947; 83880; 84484; 85025; 85379; 93005; 99285; J1644; J1815; J8540; U0003